=== PATIENT | male | born 2000 | race Caucasian/White ===

== ENCOUNTER → 2021-02-11 | Outpatient (CLI) | payer BC ==
[~2021-02-11] MED LIST: IOPAMIDOL 370 MG/ML 200 ML INFUS..BTL INJ ONE; SODIUM CHLORIDE 0.9% 250ML 250 ML ONE
== END ==
LOC: CT 15:14
PROVIDERS: ATTEND Urology
DX: R31.0 Gross hematuria (principal); N20.0 Calculus of kidney
CPT/HCPCS: 74178; J7050; Q9967

== ENCOUNTER → 2021-03-18 | Day surgery (SDC) | payer BC ==
[2021-03-16 15:44] LABS: BASOPHILS % 0.5 % (0.0-1.0); EOSINOPHILS # (AUTO) 0.1 (0.0-0.4); EOSINOPHILS % 1.8 % (0.0-6.0); HEMATOCRIT 47.4 % (38.2-49.6); HEMOGLOBIN 15.8 g/dL (14.0-18.0); LYMPHOCYTES # (AUTO) 2.3 (1.0-3.2); LYMPHOCYTES % 38.7 % (18.0-39.1); MEAN CORPUSCULAR HEMOGLOBIN 29.5 pg (28-32); MEAN CORPUSCULAR HGB CONC 33.3 g/dL (31-35); MEAN CORPUSCULAR VOLUME 88.6 fL (81-99); MONOCYTES # (AUTO) 0.5 (0.2-0.8); NEUTROPHILS % 50.8 % (38.7-80.0); PLATELET COUNT 232 x10e3/uL (140-360); RED BLOOD COUNT 5.35 x10e6/uL (4.3-5.7); RED CELL DISTRIBUTION WIDTH 11.9 % (11.7-14.4)
[2021-03-16 16:16] LABS: ALBUMIN 4.5 g/dL (3.5-5.0); ALBUMIN/GLOBULIN RATIO 1.2 (0.8-2.0); CALCIUM 9.6 mg/dL (8.4-10.2); CREATININE, SERUM 0.95 mg/dL (0.72-1.25)
[~2021-03-18] MED LIST changes: +ADDERALL 10 MG10 MG PO; +BELLADONNA/OPIUM 30 MG SUPP RC ONE; +CEFTRIAXONE 1 GM VIAL ONE; +IOPAMIDOL 300MG/ML 50ML INFUS..BTL IV ONE; -IOPAMIDOL 370 MG/ML 200 ML INFUS..BTL INJ ONE; +MEPERIDINE HCL INJ 25 MG/ML VIAL ONE; -SODIUM CHLORIDE 0.9% 250ML 250 ML ONE; +SODIUM CHLORIDE 0.9% 50ML 50 ML ONE
[2021-03-18 09:46] VITALS: BP 120/80
== END | disposition home or self-care (01) ==
LOC: OR 06:42
PROVIDERS: ATTEND Urology
DX: N13.2 Hydronephrosis with renal and ureteral calculous obstruction (principal); N39.0 Urinary tract infection, site not specified; R80.9 Proteinuria, unspecified; K21.9 Gastro-esophageal reflux disease without esophagitis; K58.9 Irritable bowel syndrome, unspecified; F41.9 Anxiety disorder, unspecified; F17.290 Nicotine dependence, other tobacco product, uncomplicated; Z01.812 Encounter for preprocedural laboratory examination; Z01.818 Encounter for other preprocedural examination; Z20.822 Contact with and (suspected) exposure to COVID-19; Z80.42 Family history of malignant neoplasm of prostate
CPT/HCPCS: 36415; 50590; 52332; 74018; 80053; 83970; 84550; 85025; C1758; C2617; J0696; J2175; Q9967; U0002

== ENCOUNTER → 2021-04-29 | Day surgery (SDC) | payer BC ==
[2021-04-26 14:00] LABS: BASOPHILS % 0.7 % (0.0-1.0); EOSINOPHILS # (AUTO) 0.2 (0.0-0.4); EOSINOPHILS % 3.6 % (0.0-6.0); HEMOGLOBIN 13.6 g/dL (14.0-18.0); LYMPHOCYTES # (AUTO) 2.4 (1.0-3.2); LYMPHOCYTES % 40.7 % (18.0-39.1); MEAN CORPUSCULAR HEMOGLOBIN 29.5 pg (28-32); MEAN CORPUSCULAR HGB CONC 33.2 g/dL (31-35); MEAN CORPUSCULAR VOLUME 88.9 fL (81-99); MONOCYTES # (AUTO) 0.6 (0.2-0.8); MONOCYTES % 10.2 % (4.4-11.3); NEUTROPHILS # (AUTO) 2.6 (2.1-6.9); NEUTROPHILS % 44.6 % (38.7-80.0); PLATELET COUNT 232 x10e3/uL (140-360); RED BLOOD COUNT 4.61 x10e6/uL (4.3-5.7); RED CELL DISTRIBUTION WIDTH 11.9 % (11.7-14.4)
[2021-04-26 14:30] LABS: ANION GAP 14.1 mmol/L (8-16); CALCIUM 9.1 mg/dL (8.4-10.2); CREATININE, SERUM 0.81 mg/dL (0.72-1.25); POTASSIUM 4.1 mmol/L (3.5-5.1)
[~2021-04-29] MED LIST changes: +DEXAMETHASONE SOD PHOS INJ 4 MG/ML SDV ONE; +GENTAMICIN 80MG/NS 100 ML 200 ML IV ONE; +LIDOCAINE HCL 2% LOCAL INJ 5 ML SDV VIAL INJ ONE; -MEPERIDINE HCL INJ 25 MG/ML VIAL ONE; +ONDANSETRON HCL INJ 2MG/ML 2ML 2 MG/ML VIAL ONE; +POVIDONE IODINE 0.05% 0.05 % ML PO ONE; +PROPOFOL IV EMULSION 10 MG/ML 20 ML VIAL ONE; +SEVOFLURANE INHAL SOLN 250 ML PEN BTL ONE
[2021-04-29 11:30] VITALS: BP 111/78
== END | disposition home or self-care (01) ==
LOC: OR 08:39
PROVIDERS: ATTEND Urology
DX: N20.0 Calculus of kidney (principal); Z46.6 Encounter for fitting and adjustment of urinary device; N13.30 Unspecified hydronephrosis; N28.89 Other specified disorders of kidney and ureter; N39.0 Urinary tract infection, site not specified; R80.9 Proteinuria, unspecified; Z84.1 Family history of disorders of kidney and ureter; Z80.42 Family history of malignant neoplasm of prostate
CPT/HCPCS: 36415; 52332; 52352; 74420; 80048; 85025; 88300; C1758; C1766; C1769; C2617; J0696; J1580; Q9967; U0002; J1100; J2001; J2405

== ENCOUNTER → 2021-06-03 | Day surgery (SDC) | payer BC ==
[~2021-06-03] MED LIST changes: +AZO BLADDER CO300 MG PO; +BACITRACIN ZINC 15 GM OINT ONE; +BUPIVACAINE HCL 0.5% INJ 30 ML VIAL INJ ONE; -CEFTRIAXONE 1 GM VIAL ONE; +FENTANYL CITRATE/PF 100MCG/2 ML INJ ONE; -GENTAMICIN 80MG/NS 100 ML 200 ML IV ONE; +LIDOCAINE 2%/ EPINEPHRINE 20ML MDV ONE; +MEPERIDINE HCL INJ 25 MG/ML VIAL ONE; +MIDAZOLAM HCL 2 MG/2 ML VIAL ONE; +OXYBUTYNIN CHLOR5 MG PO
[2021-06-03 11:30] VITALS: BP 121/81
== END | disposition home or self-care (01) ==
LOC: OR 08:06
PROVIDERS: ATTEND Urology
DX: N20.0 Calculus of kidney (principal); L72.0 Epidermal cyst; Z46.6 Encounter for fitting and adjustment of urinary device; N28.89 Other specified disorders of kidney and ureter; N13.30 Unspecified hydronephrosis; R80.9 Proteinuria, unspecified; N39.0 Urinary tract infection, site not specified; N39.41 Urge incontinence; F41.9 Anxiety disorder, unspecified; F98.8 Other specified behavioral and emotional disorders with onset usually occurring in childhood and adolescence; F17.290 Nicotine dependence, other tobacco product, uncomplicated; Z01.812 Encounter for preprocedural laboratory examination; Z01.818 Encounter for other preprocedural examination; Z20.822 Contact with and (suspected) exposure to COVID-19; Z79.899 Other long term (current) drug therapy; Z86.19 Personal history of other infectious and parasitic diseases; Z80.51 Family history of malignant neoplasm of kidney; Z80.42 Family history of malignant neoplasm of prostate
CPT/HCPCS: 14040; 52351; 74018; 74420; 88304; C1769; J0690; J1100; J2001 ×2; J2175; J2250; J2405; J2704; J3010; Q9967; U0002